=== PATIENT | female | born 1960 | race African-American/Black ===

== ENCOUNTER 2020-06-12 12:45 | Inpatient (IN) | payer MEDICAID, OTHER ==
[~2020-06-12] VITALS: Ht 167.6 cm; Wt 86.2 kg
[~2020-06-12 12:45] MED LIST: HYDR25TA
[2020-06-12] MEDS ORDERED: MAGNESIUM/ALUMINUM HYDROXIDE/SIMETHICONE 30ML UDC PO STA (13:23)
[2020-06-12] MEDS ORDERED: ONDANSETRON HCL 4MG/2ML INJ IV STA (13:23)
[2020-06-12] MEDS ORDERED: ASPIRIN 325MG TABLET PO ONE (13:30)
[2020-06-12] MEDS ORDERED: SODIUM CHLORIDE 0.9% 1,000 ML IV ONE (13:30)
[2020-06-12 14:34] LABS: BASOPHILS % 0.7 % (0.0-2.0); EOSINOPHILS % 0.2 % (0.0-5.0); HEMATOCRIT. 41.3 % (36.0-48.0); HEMOGLOBIN. 13.6 g/dL (12.0-16.0); LYMPHOCYTES % 32.9 % (20.0-50.0); MEAN CORPUSCULAR HEMOGLOBIN 28.4 pg (28.0-32.0); MEAN CORPUSCULAR VOLUME 86.2 fL (81.0-99.0); MEAN PLATELET VOLUME 9.7 fl (7.4-10.4); MONOCYTES % 12.2 % (2.0-8.0); PLATELET 230 x1000/uL (130-400); RED BLOOD CELL COUNT 4.79 mill/uL (4.2-5.4); RED CELL DISTRIBUTION WIDTH 15.8 % (11.6-14.6)
[2020-06-12 14:38] LABS: CHLORIDE 100 mEq/L (98-107)
[2020-06-12 14:41] LABS: INR 1.1; PROTHROMBIN TIME 11.4 sec (9.6-11.0)
[2020-06-12 14:43] LABS: ETHANOL BLOOD < 10 mg/dL
[2020-06-12 14:45] LABS: BETA HYDROXYBUTYRATE 6.5 mMol/L (0.0-0.3)
[2020-06-12] MEDS ORDERED: IOHEXOL-300 100 ML BOTTLE ONE (16:54)
[2020-06-12 18:34] LABS: CLARITY URINE CLEAR (CLEAR); COLOR URINE YELLOW (YELLOW); KETONES URINE 4+ (NEGATIVE); LEUKOCYTE ESTERASE URINE NEGATIVE (NEGATIVE); NITRITE URINE NEGATIVE (NEGATIVE); OCCULT BLOOD URINE NEGATIVE (NEGATIVE); PH URINE 5.5 (4.5-8.0); PROTEIN URINE TRACE (NEGATIVE); SPECIFIC GRAVITY URINE 1.051 (1.005-1.030); UROBILINOGEN URINE 0.2 E.U./dL (0.2-1.0)
[2020-06-12 18:46] LABS: *AMPHETAMINES SCREEN URINE NEGATIVE (NEGATIVE); *BARBITURATES SCREEN URINE NEGATIVE (NEGATIVE); *BENZODIAZEPINES SCREEN URINE NEGATIVE (NEGATIVE); *COCAINE SCREEN URINE NEGATIVE (NEGATIVE); METHADONE URINE SCREEN NEGATIVE (NEGATIVE); OPIATES URINE SCREEN NEGATIVE (NEGATIVE)
[2020-06-12 18:47] LABS: CANNABINOID URINE SCREEN NEGATIVE (NEGATIVE); PHENCYCLIDINE URINE SCREEN NEGATIVE (NEGATIVE)
[2020-06-12] MEDS ORDERED: MORPHINE SULFATE 2 MG/ML CPJ (NOT FOR IM USE) IV PRN (20:45)
[2020-06-13] MEDS ORDERED: ONDANSETRON HCL 4MG/2ML INJ IV PRN (01:45)
[2020-06-13] MEDS ORDERED: DEXTROSE 50% WATER 50ML SYRINGE IV PRN (01:45)
[2020-06-13] MEDS ORDERED: CLONIDINE 0.1MG TABLET PO PRN (01:45)
[2020-06-13] MEDS ORDERED: HYDR25TA MT (02:14)
[2020-06-13] MEDS ORDERED: METF-414 MT (02:14)
[2020-06-13 02:15] VITALS: BP 175/82
[2020-06-13 04:00] VITALS: BP 165/84
[2020-06-13] MEDS: HYDROCODONE/ACETAMINOPHEN 5/325MG TABLET PO PRN ×2 (05:00→12:16)
[2020-06-13] MEDS: BLOOD SUGAR DIAGNOSTIC STRIP TEST SCH ×4 (07:26→21:36)
[2020-06-13 08:00] VITALS: BP 145/67
[2020-06-13] MEDS: ENOXAPARIN 40MG/0.4ML SYR SUBCUT SCH (08:47)
[2020-06-13] MEDS: METFORMIN HCL 500MG TABLET PO SCH ×2 (08:47→17:16)
[2020-06-13] MEDS: PANTOPRAZOLE SODIUM 40 MG/VIAL IV SCH (08:47)
[2020-06-13] MEDS: AMLODIPINE 10MG TABLET PO SCH (08:48)
[2020-06-13] MEDS: INSULIN LISPRO 100 UNITS/ML SUBCUT SCH ×4 (08:58→21:37)
[2020-06-13] MEDS ORDERED: LISINOPRIL 20MG TABLET PO SCH (09:00)
[2020-06-13] MEDS: LISINOPRIL 20MG TABLET PO SCH ×3 (09:30→17:16)
[2020-06-13] MEDS ORDERED: INSULIN GLARGINE UD 100 UNITS/ML SYR SUBCUT SCH (10:00)
[2020-06-13] MEDS: INSULIN GLARGINE UD 100 UNITS/ML SYR SUBCUT SCH ×3 (11:00→23:06)
[2020-06-13] MEDS ORDERED: GLIP10TA10 MT (11:02)
[2020-06-13] MEDS ORDERED: AMLO10TA80 PO (11:02)
[2020-06-13] MEDS ORDERED: LISI20TA31 PO (11:02)
[2020-06-13] MEDS ORDERED: METO-293 MT (11:02)
[2020-06-13] MEDS: GLIPIZIDE 10MG TABLET PO SCH ×2 (11:15→17:16)
[2020-06-13 12:00] VITALS: BP 123/65
[2020-06-13] MEDS: METOCLOPRAMIDE HCL 10MG TABLET PO SCH ×3 (12:10→23:01)
[2020-06-13 15:58] LABS: CARCINO EMBRYONIC ANTIGEN < 0.5 ng/ml; HEPATITIS B SURFACE ANTIGEN NEGATIVE
[2020-06-13 16:00] VITALS: BP 124/58
[2020-06-13 16:28] LABS: HEPATITIS A AB IGM NEGATIVE (NEGATIVE)
[2020-06-13 20:00] VITALS: BP 146/70
[2020-06-14] VITALS: BP 114/61
[2020-06-14 04:00] VITALS: BP 118/65
[2020-06-14] MEDS: METOCLOPRAMIDE HCL 10MG TABLET PO SCH ×3 (06:13→17:03)
[2020-06-14] MEDS: BLOOD SUGAR DIAGNOSTIC STRIP TEST SCH ×4 (06:23→21:51)
[2020-06-14 07:12] LABS: BASOPHILS % 0.5 % (0.0-2.0); EOSINOPHILS % 0.7 % (0.0-5.0); HEMATOCRIT. 40.1 % (36.0-48.0); HEMOGLOBIN. 13.7 g/dL (12.0-16.0); LYMPHOCYTES % 37.5 % (20.0-50.0); MEAN PLATELET VOLUME 9.9 fl (7.4-10.4); MONOCYTES % 12.1 % (2.0-8.0); NEUTROPHILS % 49.2 % (40.0-76.0); PLATELET 205 x1000/uL (130-400); RED BLOOD CELL COUNT 4.72 mill/uL (4.2-5.4); RED CELL DISTRIBUTION WIDTH 15.6 % (11.6-14.6)
[2020-06-14 07:25] LABS: CHLORIDE 101 mEq/L (98-107)
[2020-06-14 08:00] VITALS: BP 120/58
[2020-06-14] MEDS ORDERED: POTASSIUM CHLORIDE 20MEQ TABLET SR PO NR ×2 (08:00→18:30)
[2020-06-14] MEDS: LISINOPRIL 20MG TABLET PO SCH ×2 (08:26→16:53)
[2020-06-14] MEDS: METFORMIN HCL 500MG TABLET PO SCH ×2 (08:26→16:52)
[2020-06-14] MEDS: PANTOPRAZOLE SODIUM 40 MG/VIAL IV SCH (08:27)
[2020-06-14] MEDS: GLIPIZIDE 10MG TABLET PO SCH ×2 (08:27→16:52)
[2020-06-14] MEDS: AMLODIPINE 10MG TABLET PO SCH (08:27)
[2020-06-14] MEDS: INSULIN LISPRO 100 UNITS/ML SUBCUT SCH ×4 (08:35→21:51)
[2020-06-14] MEDS: ENOXAPARIN 40MG/0.4ML SYR SUBCUT SCH (08:36)
[2020-06-14] MEDS: INSULIN GLARGINE UD 100 UNITS/ML SYR SUBCUT SCH ×2 (10:20→22:00)
[2020-06-14] MEDS ORDERED: POTASSIUM CHLORIDE INJ 40 MEQ in SODIUM CHLORIDE 0.9% 500 ML IV NR (11:00)
[2020-06-14] MEDS ORDERED: POTASSIUM CHLORIDE INJ 40 MEQ in DEXT 5% WATER 500 ML IV NR (11:00)
[2020-06-14] MEDS: HYDROCODONE/ACETAMINOPHEN 5/325MG TABLET PO PRN (11:53)
[2020-06-14 12:00] VITALS: BP 111/49
[2020-06-14 16:00] VITALS: BP 103/52
[2020-06-14] MEDS: SODIUM CHLORIDE 0.9% 1,000 ML IV SCH (18:41)
[2020-06-14 20:00] VITALS: BP 125/62
[2020-06-14] MEDS: FAMOTIDINE 20MG/2ML VIAL IV SCH (21:22)
[2020-06-14 22:02] LABS: CHLORIDE 106 mEq/L (98-107)
[2020-06-15] VITALS: BP 114/59
[2020-06-15] MEDS: METOCLOPRAMIDE HCL 10MG TABLET PO SCH ×4 (00:15→18:00)
[2020-06-15 04:00] VITALS: BP 137/68
[2020-06-15] MEDS: SODIUM CHLORIDE 0.9% 1,000 ML IV SCH ×2 (05:36→17:41)
[2020-06-15] MEDS: BLOOD SUGAR DIAGNOSTIC STRIP TEST SCH ×4 (07:37→20:31)
[2020-06-15] MEDS: INSULIN LISPRO 100 UNITS/ML SUBCUT SCH ×4 (07:50→21:41)
[2020-06-15 08:00] VITALS: BP 127/66
[2020-06-15] MEDS: GLIPIZIDE 10MG TABLET PO SCH ×2 (08:51→17:32)
[2020-06-15] MEDS: ENOXAPARIN 40MG/0.4ML SYR SUBCUT SCH (08:51)
[2020-06-15] MEDS: METFORMIN HCL 500MG TABLET PO SCH ×2 (08:51→17:32)
[2020-06-15] MEDS: LISINOPRIL 20MG TABLET PO SCH ×2 (08:51→17:32)
[2020-06-15] MEDS: AMLODIPINE 10MG TABLET PO SCH (08:52)
[2020-06-15] MEDS: INSULIN GLARGINE UD 100 UNITS/ML SYR SUBCUT SCH ×2 (10:00→21:44)
[2020-06-15] MEDS: FAMOTIDINE 20MG/2ML VIAL IV SCH ×2 (11:20→20:32)
[2020-06-15] MEDS: HYDROCODONE/ACETAMINOPHEN 5/325MG TABLET PO PRN (11:28)
[2020-06-15 12:00] VITALS: BP 143/68
[2020-06-15 16:00] VITALS: BP 150/67
[2020-06-15 20:00] VITALS: BP 136/63
[2020-06-16] VITALS: BP 145/66
[2020-06-16] MEDS: METOCLOPRAMIDE HCL 10MG TABLET PO SCH ×5 (00:04→23:50)
[2020-06-16] MEDS: SODIUM CHLORIDE 0.9% 1,000 ML IV SCH (00:06)
[2020-06-16 04:00] VITALS: BP 139/68
[2020-06-16 05:34] LABS: BASOPHILS % 0.9 % (0.0-2.0); EOSINOPHILS % 1.6 % (0.0-5.0); HEMATOCRIT. 37.9 % (36.0-48.0); HEMOGLOBIN. 12.5 g/dL (12.0-16.0); LYMPHOCYTES % 47.5 % (20.0-50.0); MEAN CORPUSCULAR HEMOGLOBIN 27.8 pg (28.0-32.0); MEAN CORPUSCULAR VOLUME 84.2 fL (81.0-99.0); MEAN PLATELET VOLUME 9.8 fl (7.4-10.4); MONOCYTES % 10.8 % (2.0-8.0); NEUTROPHILS % 39.2 % (40.0-76.0); PLATELET 173 x1000/uL (130-400); RED CELL DISTRIBUTION WIDTH 15.7 % (11.6-14.6)
[2020-06-16 05:44] LABS: CHLORIDE 108 mEq/L (98-107)
[2020-06-16] MEDS ORDERED: POTASSIUM CHLORIDE INJ 40 MEQ in DEXT 5% WATER 500 ML IV ONE (07:00)
[2020-06-16] MEDS: INSULIN LISPRO 100 UNITS/ML SUBCUT SCH ×4 (07:24→21:00)
[2020-06-16] MEDS: BLOOD SUGAR DIAGNOSTIC STRIP TEST SCH ×4 (07:24→21:42)
[2020-06-16 08:00] VITALS: BP 136/66
[2020-06-16] MEDS: AMLODIPINE 10MG TABLET PO SCH (09:07)
[2020-06-16] MEDS: LISINOPRIL 20MG TABLET PO SCH ×2 (09:08→16:07)
[2020-06-16] MEDS: ENOXAPARIN 40MG/0.4ML SYR SUBCUT SCH (09:08)
[2020-06-16] MEDS: METFORMIN HCL 500MG TABLET PO SCH ×2 (09:08→16:06)
[2020-06-16] MEDS: FAMOTIDINE 20MG/2ML VIAL IV SCH (09:08)
[2020-06-16] MEDS: HYDROCODONE/ACETAMINOPHEN 5/325MG TABLET PO PRN (09:08)
[2020-06-16] MEDS: GLIPIZIDE 10MG TABLET PO SCH ×2 (09:08→16:07)
[2020-06-16] MEDS ORDERED: POTASSIUM CHLORIDE 20MEQ TABLET SR PO NR (09:15)
[2020-06-16] MEDS: INSULIN GLARGINE UD 100 UNITS/ML SYR SUBCUT SCH ×2 (09:56→22:00)
[2020-06-16] MEDS ORDERED: MAGNESIUM 4 G PREMIX 100 ML IV NR (12:30)
[2020-06-16 20:00] VITALS: BP 131/54
[2020-06-16] MEDS: FAMOTIDINE 20MG TABLET PO SCH (21:42)
[2020-06-17] VITALS: BP 128/62
[2020-06-17 04:00] VITALS: BP 126/65
[2020-06-17 04:07] LABS: CHLORIDE 107 mEq/L (98-107)
[2020-06-17] MEDS: METOCLOPRAMIDE HCL 10MG TABLET PO SCH ×2 (06:00→12:59)
[2020-06-17] MEDS: BLOOD SUGAR DIAGNOSTIC STRIP TEST SCH ×2 (06:22→12:59)
[2020-06-17] MEDS ORDERED: MAGNESIUM 2 G PREMIX 50 ML IV SCH (06:30)
[2020-06-17 08:00] VITALS: BP 130/68
[2020-06-17] MEDS: GLIPIZIDE 10MG TABLET PO SCH (09:21)
[2020-06-17] MEDS: AMLODIPINE 10MG TABLET PO SCH (09:21)
[2020-06-17] MEDS: FAMOTIDINE 20MG TABLET PO SCH (09:21)
[2020-06-17] MEDS: ENOXAPARIN 40MG/0.4ML SYR SUBCUT SCH (09:22)
[2020-06-17] MEDS: METFORMIN HCL 500MG TABLET PO SCH (09:22)
[2020-06-17] MEDS: LISINOPRIL 20MG TABLET PO SCH (09:22)
[2020-06-17] MEDS: INSULIN LISPRO 100 UNITS/ML SUBCUT SCH ×2 (09:31→12:50)
[2020-06-17] MEDS: INSULIN GLARGINE UD 100 UNITS/ML SYR SUBCUT SCH (10:00)
[2020-06-17 12:00] VITALS: BP 134/71
[2020-06-17 13:35] VITALS: BP 134/71
[2020-06-17] MEDS ORDERED: *PATIENT'S OWN MEDICATION STORAGE XX SCH (14:15)
== END 2020-06-17 14:10 | disposition home or self-care (01) | DRG 48 ==
LOC: ER 12:45 → 6EST 16:03 → ENRESERV 22:16
PROVIDERS: ADMIT Internal Medicine; ATTEND Internal Medicine
DX: E11.43 Type 2 diabetes mellitus with diabetic autonomic (poly)neuropathy (principal); E11.65 Type 2 diabetes mellitus with hyperglycemia; E88.89 Other specified metabolic disorders; K31.84 Gastroparesis; E44.1 Mild protein-calorie malnutrition; I10 Essential (primary) hypertension; K42.9 Umbilical hernia without obstruction or gangrene; Z20.822 Contact with and (suspected) exposure to COVID-19; D25.9 Leiomyoma of uterus, unspecified; K57.30 Diverticulosis of large intestine without perforation or abscess without bleeding; R62.7 Adult failure to thrive; Z79.899 Other long term (current) drug therapy; Z68.30 Body mass index [BMI] 30.0-30.9, adult; Z79.84 Long term (current) use of oral hypoglycemic drugs
CPT/HCPCS: 36415; 71260; 74177; 80048; 80053; 80305; 80320; 81003; 82010; 82378; 82962; 83036; 83605; 83735; 84439; 84443; 84484; 85025; 86705; 86709; 86803; 87340; 87426; 93005; 99285; C1893; C9113; J1650; J1815; J2405; J3475; J3480; J3490; J7030; J7040; J7060; J8597; Q9967; G0480